=== PATIENT | male | born 1975 | race African-American/Black ===

== ENCOUNTER 2023-03-19 13:36 | Emergency (ER) | payer BC, SELFPAY ==
[2023-03-19 15:14] LABS: Bilirubin Negative (Negative); Blood, Urine Small (Negative); Glucose, Urine (Dipstick) Negative (Negative); Ketone, Urine Negative (Negative); Leukocyte Negative (Negative); Nitrite Negative (Negative); Protein, Urine (Dipstick) Negative (Neg-Trace); Specific Gravity, Urine 1.015 (1.005-1.030); Urobilinogen 0.2 mg/dL (Less than 2); pH, Urine 6.5 (5.0-9.0)
[2023-03-19 15:30] LABS: Clarity Hazy (Clear)
[2023-03-19 15:33] LABS: CAUTI Indications for Culture Pelvic or flank pain; RBC/HPF 0-3 HPF (0-3); Squamous Epithelial 0-3 HPF (0-3); WBC/HPF 0-3 HPF (0-3)
[2023-03-19 15:34] LABS: Bacteria/HPF Rare-Few HPF (None Seen)
[2023-03-19 15:35] LABS: Urine Culture Reflex No No
[2023-03-20 22:57] LABS: Chlam.trachomatis by PCR,Urine Not Detected (NotDetected); GC N.gonorrhoeae PCR,UrineVOID Not Detected (NotDetected)
== END 2023-03-19 15:10 | disposition home or self-care (01) ==
LOC: MADERS 13:36
DX: Z20.2 Contact with and (suspected) exposure to infections with a predominantly sexual mode of transmission (principal); F17.210 Nicotine dependence, cigarettes, uncomplicated
CPT/HCPCS: 81001; 87491; 87591; 99283